=== PATIENT | female | born 1995 | race Caucasian/White ===

== ENCOUNTER 2017-08-31 23:44 | Outpatient (CLI) | payer MEDICAID ==
[2017-09-01 01:40] LABS: ADD UMIC YES; UR ASCORBIC ACID NEGATIVE (NEGATIVE); UR BACTERIA FEW /HPF (NONE SEEN); UR BILIRUBIN (Dip) NEGATIVE (NEGATIVE); UR BLOOD (Dip) NEGATIVE (NEGATIVE); UR CLARITY CLOUDY (CLEAR); UR COLOR YELLOW (YELLOW); UR GLUCOSE (Dip) NEGATIVE (NEGATIVE); UR KETONES (Dip) NEGATIVE (NEGATIVE); UR LEUKOCYTE ESTERASE (Dip) 3+ Leu/ul (NEGATIVE); UR NITRITE (Dip) NEGATIVE (NEGATIVE); UR RBC 5 /HPF (0-5); UR SPECIFIC GRAVITY (Dip) 1.004 (1.003-1.030); UR SQUAMOUS EPITHELIAL CELL MODERATE /HPF (FEW); UR TOTAL PROTEIN (Dip) NEGATIVE (NEGATIVE); UR UROBILINOGEN (Dip) NEGATIVE (NEGATIVE); UR WBC 50 /HPF (0-5)
== END 2017-09-01 03:03 | disposition home or self-care (01) ==
LOC: OBT 23:44 → L-D 23:44
DX: O23.43 Unspecified infection of urinary tract in pregnancy, third trimester (principal); Z3A.37 37 weeks gestation of pregnancy
CPT/HCPCS: 36415; 76815; 76818; 81001; 87086

== ENCOUNTER 2017-09-12 19:20 | Inpatient (IN) | payer MEDICAID ==
[2017-09-12] MEDS ORDERED: LACTATED RINGER'S 1,000 ML IV ×2 (20:27)
[2017-09-12] MEDS ORDERED: LIDOCAINE 1% (MPF) 30 ML INJ INJ (20:30)
[2017-09-12] MEDS ORDERED: BUTORPHANOL 2 MG INJ IV (20:30)
[2017-09-12] MEDS ORDERED: OXYTOCIN 30 UNITS/LR 500 ML IV (20:30)
[2017-09-12] MEDS ORDERED: CARBOPROST 250 MCG INJ IM (20:30)
[2017-09-12] MEDS ORDERED: BUTORPHANOL 1 MG INJ IV (20:30)
[2017-09-12] MEDS ORDERED: MISOPROSTOL 200 MCG TAB PR (20:30)
[2017-09-12] MEDS: LACTATED RINGER'S 1,000 ML IV ×2 (21:15→22:05)
[2017-09-12 21:36] LABS: ADD MAN DIFF? NO
[2017-09-12 21:44] LABS: ABNORMAL IP MESSAGE 1; BASOPHIL # 0.1 10^3/ul (0.0-0.1); BASOPHILS % 0.4 % (0.0-2.0); EOSINOPHILS # 0.2 10^3/ul (0.0-0.5); EOSINOPHILS % 0.9 % (0.0-7.0); HEMATOCRIT 39.8 % (37.0-47.0); HEMOGLOBIN 13.6 g/dl (12.0-16.0); LYMPHOCYTES # 3.3 10^3/ul (0.8-2.9); LYMPHOCYTES % 18.1 % (15.0-51.0); MEAN CORPUSCULAR HGB CONC 34.2 g/dl (32.0-37.0); MEAN CORPUSCULAR VOLUME 87.9 fl (82.0-101.0); MEAN PLATELET VOLUME 10.9 fl (7.4-10.4); MONOCYTE # 1.6 10^3/ul (0.3-0.9); MONOCYTES % 8.9 % (0.0-11.0); NEUTROPHIL # 12.6 10^3/ul (1.6-7.5); NEUTROPHILS % 69.2 % (39.0-77.0); PLATELET COUNT 259 10^3/UL (140-415); RED BLOOD COUNT 4.53 10^6/ul (4.20-5.40); RED CELL DISTRIBUTION WIDTH 14.8 % (11.5-14.5)
[2017-09-12 21:44] LABS: WHITE BLOOD COUNT 18.2 10^3/ul (4.8-10.8)
[2017-09-12 21:46] LABS: POSITIVE DIFF @See below
[2017-09-12 22:02] LABS: INR 0.87; PROTIME 11.9 Sec (11.9-14.9); PT RATIO 0.9
[2017-09-12 22:03] LABS: PARTIAL THROMBOPLASTIN TIME 25.7 Sec (25.0-35.0)
[2017-09-12 22:06] LABS: GLUCOSE 76 mg/dl (70-220)
[2017-09-12 22:36] LABS: HEPATITIS B SURFACE ANTIGEN NEGATIVE (NEGATIVE)
[2017-09-12] MEDS ORDERED: FENTAnyl 2MCG/ML-ROPIV 0.2% 100 ML (22:42)
[2017-09-12] MEDS ORDERED: NALOXONE (0.4 MG/ML) INJ IV (23:30)
[2017-09-13] MEDS: LACTATED RINGER'S 1,000 ML IV ×2 (00:08→03:41)
[2017-09-13] MEDS: DEXTROSE 5%-LR 1,000 ML IV (01:12)
[2017-09-13] MEDS ORDERED: EPHEDrine SULFATE 50 MG/5 ML SYG (01:22)
[2017-09-13] MEDS: FENTAnyl 2MCG/ML-ROPIV 0.2% 100 ML BAG EPI ×2 (01:28→04:54)
[2017-09-13] MEDS ORDERED: EPHEDrine SULFATE 50 MG/5 ML SYG IV (01:30)
[2017-09-13] MEDS: METHYLERGONOVINE 0.2 MG INJ IM (09:38)
[2017-09-13] MEDS: OXYTOCIN 30 UNITS/LR 500 ML IV ×3 (09:51→14:10)
[2017-09-13] MEDS ORDERED: IBUPROFEN 200 MG TAB PO (10:30)
[2017-09-13] MEDS: IBUPROFEN 600 MG TAB PO ×4 (11:31→23:45)
[2017-09-13] MEDS ORDERED: OXYCODONE/ASPIRIN (4.88/325) TAB PO ×2 (12:00)
[2017-09-13] MEDS ORDERED: ACETAMINOPHEN 325 MG TAB PO (12:00)
[2017-09-13] MEDS ORDERED: LANOLIN 7 GM TUBE TOP (12:00)
[2017-09-13] MEDS ORDERED: HYDROCODONE/APAP (5/325) TAB PO ×2 (12:00)
[2017-09-13] MEDS ORDERED: ONDANSETRON 4 MG INJ IV (12:00)
[2017-09-13] MEDS: WITCH HAZEL/GLYCERIN PAD PR (14:07)
[2017-09-13] MEDS: BENZOCAINE 20% 56 ML SPRAY TOP (14:08)
[2017-09-13] MEDS: DIBUCAINE 1% 30 GM OINT PR (14:08)
[2017-09-13] MEDS: SENNA/DOCUSATE NA (8.6MG/50MG) TAB PO (21:19)
[2017-09-13 22:04] LABS: RAPID PLASMA REAGIN NONREACTIVE (NR)
[2017-09-14] MEDS: IBUPROFEN 600 MG TAB PO ×4 (05:39→23:29)
[2017-09-14 09:36] LABS: ADD MAN DIFF? NO
[2017-09-14 09:40] LABS: BASOPHIL # 0.1 10^3/ul (0.0-0.1); BASOPHILS % 0.3 % (0.0-2.0); EOSINOPHILS # 0.2 10^3/ul (0.0-0.5); EOSINOPHILS % 1.2 % (0.0-7.0); HEMATOCRIT 30.3 % (37.0-47.0); HEMOGLOBIN 10.1 g/dl (12.0-16.0); LYMPHOCYTES # 2.8 10^3/ul (0.8-2.9); LYMPHOCYTES % 15.1 % (15.0-51.0); MEAN CORPUSCULAR HEMOGLOBIN 30.1 pg (29.0-33.0); MEAN CORPUSCULAR HGB CONC 33.3 g/dl (32.0-37.0); MEAN CORPUSCULAR VOLUME 90.4 fl (82.0-101.0); MEAN PLATELET VOLUME 10.5 fl (7.4-10.4); MONOCYTE # 1.2 10^3/ul (0.3-0.9); MONOCYTES % 6.5 % (0.0-11.0); NEUTROPHIL # 13.8 10^3/ul (1.6-7.5); NEUTROPHILS % 74.3 % (39.0-77.0); PLATELET COUNT 203 10^3/UL (140-415); RED BLOOD COUNT 3.35 10^6/ul (4.20-5.40)
[2017-09-14 09:40] LABS: WHITE BLOOD COUNT 18.6 10^3/ul (4.8-10.8)
[2017-09-14] MEDS: SENNA/DOCUSATE NA (8.6MG/50MG) TAB PO ×2 (11:40→21:00)
[2017-09-14 13:03] LABS: RUBELLA ANTIBODY - IGM <20.00 AU/mL
[2017-09-15] MEDS: IBUPROFEN 600 MG TAB PO ×2 (05:41→13:42)
[2017-09-15] MEDS: MEASLES,MUMPS,RUBELLA VACCINE INJ SC* (09:00)
[2017-09-15] MEDS: SENNA/DOCUSATE NA (8.6MG/50MG) TAB PO (09:55)
[2017-09-15 10:39] LABS: ADD MAN DIFF? NO
[2017-09-15 10:46] LABS: WHITE BLOOD COUNT 14.4 10^3/ul (4.8-10.8)
[2017-09-15 10:46] LABS: BASOPHIL # 0.1 10^3/ul (0.0-0.1); BASOPHILS % 0.3 % (0.0-2.0); EOSINOPHILS # 0.3 10^3/ul (0.0-0.5); EOSINOPHILS % 2.4 % (0.0-7.0); HEMATOCRIT 29.2 % (37.0-47.0); HEMOGLOBIN 9.6 g/dl (12.0-16.0); LYMPHOCYTES # 2.6 10^3/ul (0.8-2.9); LYMPHOCYTES % 17.7 % (15.0-51.0); MEAN CORPUSCULAR HEMOGLOBIN 29.8 pg (29.0-33.0); MEAN CORPUSCULAR HGB CONC 32.9 g/dl (32.0-37.0); MEAN CORPUSCULAR VOLUME 90.7 fl (82.0-101.0); MEAN PLATELET VOLUME 10.7 fl (7.4-10.4); MONOCYTES % 6.9 % (0.0-11.0); NEUTROPHIL # 10.1 10^3/ul (1.6-7.5); NEUTROPHILS % 70.2 % (39.0-77.0); PLATELET COUNT 237 10^3/UL (140-415); RED BLOOD COUNT 3.22 10^6/ul (4.20-5.40); RED CELL DISTRIBUTION WIDTH 15.2 % (11.5-14.5)
== END 2017-09-15 16:40 | disposition home or self-care (01) | DRG 775 ==
LOC: OBT 19:20 → PP1 09-13 11:39 → L-D 19:21 → OBT 20:43 → L-D 20:30
PROVIDERS: Obstetrics & Gynecology
PROC: 10E0XZZ Delivery of Products of Conception, External Approach (ICD-10-PCS; principal; 2017-09-13)
PROC: 0HQ9XZZ Repair Perineum Skin, External Approach (ICD-10-PCS; 2017-09-13)
PROC: 3E033VJ Introduction of Other Hormone into Peripheral Vein, Percutaneous Approach (ICD-10-PCS; 2017-09-13)
DX: O69.81X0 Labor and delivery complicated by cord around neck, without compression, not applicable or unspecified (principal); O70.0 First degree perineal laceration during delivery; Z3A.39 39 weeks gestation of pregnancy; Z37.0 Single live birth
CPT/HCPCS: 62319; 82947; 82962; 85025; 85610; 85730; 86592; 86762; 86850; 86900; 86901; 87340

== ENCOUNTER 2017-09-21 13:06 | Emergency (ER) | payer SELFPAY, MEDICAID ==
[2017-09-21 13:38] LABS: URINE BLOOD (Dip) POC 3+ (NEGATIVE); URINE GLUCOSE (Dip) POC Negative (NEGATIVE); URINE KETONES (Dip) POC Negative (NEGATIVE); URINE LEUKOCYTE EST (Dip) POC 1+ (NEGATIVE); URINE NITRITE (Dip) POC Negative (NEGATIVE); URINE TOTAL PROTEIN POC Negative (NEGATIVE)
[2017-09-21 13:38] LABS: URINE PH (Dip) POC 5.5 (5.0-8.5)
[2017-09-21 13:55] LABS: ADD MAN DIFF? NO
[2017-09-21 13:58] LABS: BASOPHIL # 0.1 10^3/ul (0.0-0.1); BASOPHILS % 0.4 % (0.0-2.0); EOSINOPHILS # 0.3 10^3/ul (0.0-0.5); EOSINOPHILS % 2.1 % (0.0-7.0); HEMATOCRIT 39.5 % (37.0-47.0); HEMOGLOBIN 13.2 g/dl (12.0-16.0); LYMPHOCYTES # 2.3 10^3/ul (0.8-2.9); LYMPHOCYTES % 17.9 % (15.0-51.0); MEAN CORPUSCULAR HEMOGLOBIN 29.4 pg (29.0-33.0); MEAN CORPUSCULAR HGB CONC 33.4 g/dl (32.0-37.0); MEAN PLATELET VOLUME 9.4 fl (7.4-10.4); MONOCYTE # 0.7 10^3/ul (0.3-0.9); MONOCYTES % 5.7 % (0.0-11.0); NEUTROPHIL # 9.4 10^3/ul (1.6-7.5); NEUTROPHILS % 73.3 % (39.0-77.0); PLATELET COUNT 455 10^3/UL (140-415); RED BLOOD COUNT 4.49 10^6/ul (4.20-5.40); RED CELL DISTRIBUTION WIDTH 13.9 % (11.5-14.5)
[2017-09-21 13:58] LABS: WHITE BLOOD COUNT 12.8 10^3/ul (4.8-10.8)
[2017-09-21] MEDS: morphine 4 MG/ML VIAL IV ×2 (13:59→15:07)
[2017-09-21] MEDS: ONDANSETRON 4 MG INJ IV (13:59)
[2017-09-21] MEDS: SOD CHLORIDE 0.9% 1,000 ML IV (14:00)
[2017-09-21 14:20] LABS: ALANINE AMINOTRANSFERASE 20 IU/L (13-69); ALBUMIN 3.8 g/dl (3.3-4.9); ALBUMIN/GLOBULIN RATIO 1.08; ALKALINE PHOSPHATASE 162 IU/L (42-121); ANION GAP 15 (8-16); ASPARTATE AMINO TRANSFERASE 17 IU/L (15-46); BILIRUBIN,INDIRECT 0.4 mg/dl (0-1.1); BILIRUBIN,TOTAL 0.4 mg/dl (0.2-1.3); BLOOD UREA NITROGEN 10 mg/dl (7-20); CALCIUM 9.8 mg/dl (8.4-10.2); CARBON DIOXIDE 23 mmol/L (21-31); CHLORIDE 110 mmol/L (97-110); CREATININE 0.58 mg/dl (0.44-1.00); GLUCOSE 100 mg/dl (70-220); LIPASE 39 U/L (23-300); POTASSIUM 3.7 mmol/L (3.5-5.1); SODIUM 144 mmol/L (135-144); TOTAL PROTEIN 7.3 g/dl (6.1-8.1)
[2017-09-21] MEDS: CEFTRIAXONE 1 GM/50 ML (PMX) 50 ML IVPB (16:43)
== END 2017-09-21 17:41 | disposition home or self-care (01) ==
LOC: E/R 13:06
DX: N39.0 Urinary tract infection, site not specified (principal); E86.0 Dehydration
CPT/HCPCS: 36415; 76856; 80053; 81003; 81025; 83690; 85025; 87086; 96374; 96375; 96376; 99285-25

== ENCOUNTER 2017-09-22 15:52 | Emergency (ER) | payer MEDICAID ==
[2017-09-22 17:50] LABS: ADD MAN DIFF? NO
[2017-09-22 17:55] LABS: WHITE BLOOD COUNT 12.8 10^3/ul (4.8-10.8)
[2017-09-22 17:55] LABS: BASOPHILS % 0.3 % (0.0-2.0); EOSINOPHILS # 0.4 10^3/ul (0.0-0.5); EOSINOPHILS % 3.4 % (0.0-7.0); HEMATOCRIT 35.8 % (37.0-47.0); HEMOGLOBIN 12.1 g/dl (12.0-16.0); LYMPHOCYTES # 2.4 10^3/ul (0.8-2.9); LYMPHOCYTES % 19.1 % (15.0-51.0); MEAN CORPUSCULAR HEMOGLOBIN 30.1 pg (29.0-33.0); MEAN CORPUSCULAR HGB CONC 33.8 g/dl (32.0-37.0); MEAN CORPUSCULAR VOLUME 89.1 fl (82.0-101.0); MONOCYTE # 0.9 10^3/ul (0.3-0.9); NEUTROPHIL # 8.9 10^3/ul (1.6-7.5); NEUTROPHILS % 69.5 % (39.0-77.0); PLATELET COUNT 400 10^3/UL (140-415); RED BLOOD COUNT 4.02 10^6/ul (4.20-5.40); RED CELL DISTRIBUTION WIDTH 13.5 % (11.5-14.5)
[2017-09-22 18:11] LABS: ADD UMIC YES; UR ASCORBIC ACID NEGATIVE (NEGATIVE); UR BILIRUBIN (Dip) NEGATIVE (NEGATIVE); UR BLOOD (Dip) 3+ mg/dL (NEGATIVE); UR CLARITY CLOUDY (CLEAR); UR COLOR YELLOW (YELLOW); UR GLUCOSE (Dip) NEGATIVE (NEGATIVE); UR KETONES (Dip) NEGATIVE (NEGATIVE); UR LEUKOCYTE ESTERASE (Dip) 3+ Leu/ul (NEGATIVE); UR NITRITE (Dip) NEGATIVE (NEGATIVE); UR NONSQUAMOUS EPITHELIAL CELL 1 /HPF (NONE SEEN); UR RBC > 182 /HPF (0-5); UR SPECIFIC GRAVITY (Dip) 1.011 (1.003-1.030); UR SQUAMOUS EPITHELIAL CELL FEW /HPF (FEW); UR TOTAL PROTEIN (Dip) 2+ mg/dl (NEGATIVE); UR UROBILINOGEN (Dip) NEGATIVE (NEGATIVE); UR WBC > 182 /HPF (0-5)
[2017-09-22] MEDS: ONDANSETRON 4 MG INJ IV (18:13)
[2017-09-22] MEDS: KETOROLAC 15 MG INJ IV (18:14)
[2017-09-22 18:18] LABS: ALANINE AMINOTRANSFERASE 26 IU/L (13-69); ALBUMIN 3.7 g/dl (3.3-4.9); ALBUMIN/GLOBULIN RATIO 1.12; ALKALINE PHOSPHATASE 153 IU/L (42-121); ANION GAP 15 (8-16); ASPARTATE AMINO TRANSFERASE 15 IU/L (15-46); BILIRUBIN,INDIRECT 0.3 mg/dl (0-1.1); BILIRUBIN,TOTAL 0.3 mg/dl (0.2-1.3); BLOOD UREA NITROGEN 9 mg/dl (7-20); CALCIUM 9.1 mg/dl (8.4-10.2); CARBON DIOXIDE 24 mmol/L (21-31); CHLORIDE 105 mmol/L (97-110); CREATININE 0.58 mg/dl (0.44-1.00); GLUCOSE 89 mg/dl (70-220); LIPASE 37 U/L (23-300); POTASSIUM 3.6 mmol/L (3.5-5.1); SODIUM 140 mmol/L (135-144)
[2017-09-22] MEDS: SOD CHLORIDE 0.9% 1,000 ML IV (18:18)
[2017-09-22] MEDS: CEFTRIAXONE 1 GM/50 ML (PMX) 50 ML IVPB (19:11)
[2017-09-22] MEDS: SOD CHLORIDE 0.9% 100 ML (19:11)
[2017-09-22] MEDS: IOHEXOL 300MG/ML 150 ML BTL (19:11)
== END 2017-09-22 20:17 | disposition home or self-care (01) ==
LOC: FTE 20:17
DX: N39.0 Urinary tract infection, site not specified (principal); R10.2 Pelvic and perineal pain
CPT/HCPCS: 36415; 74177; 80053; 81001; 81025; 83690; 85025; 96374; 96375; 99285-25